=== PATIENT | female | born 1955 | race Caucasian/White ===

== ENCOUNTER 2018-03-13 09:35 | Day surgery (SDC) | payer BC ==
[2018-02-25 14:14] VITALS: BMI 25.7
[2018-03-13] MEDS ORDERED: PROPOFOL 20 ML ONE ×2 (10:36)
[2018-03-13 11:25] VITALS: TEMP 97.9
[2018-03-13 11:44] VITALS: BP 114/74; PULSE 77
--- NOTE | 2018-03-15 14:26 | PATH ---
Surgical Pathology Report Patient Name: DYLLAN MENDEZ [facility]. Rec. #: [id number] /Age/Gender: 1955 (Age: 62) / F Account: [id number] Location: [place] Pathology Taken: 03/13/2018 Received: 03/13/2018 Reported: 03/15/2018 Physicians: Felicia Conley M.D. Specimen(s) Received DESCENDING COLON Clinical History Rule out colon cancer Postoperative diagnosis: Polyp Final Diagnosis DESCENDING COLON, BIOPSY: HYPERPLASTIC POLYP. Electronically Signed Silvia Garcia M.D. Gross Description Received in formalin, labeled "descending colon" is a zamora, irregular portion of soft tissue measuring 0.3 cm. in greatest dimension. The specimen is submitted in toto in one cassette. 03/14/201803/14/2018
== END 2018-03-13 11:45 | disposition home or self-care (01) ==
LOC: FASU-ENDO 09:35
PROVIDERS: ATTEND Internal Medicine Gastroenterology
PROC: 0DBM8ZX Excision of Descending Colon, Via Natural or Artificial Opening Endoscopic, Diagnostic (ICD-10-PCS; principal; 2018-03-13 10:54)
DX: Z12.11 Encounter for screening for malignant neoplasm of colon (principal); K63.5 Polyp of colon; K64.1 Second degree hemorrhoids
CPT/HCPCS: 88305-TC

== ENCOUNTER 2023-02-28 04:30 | Day surgery (SDC) | payer OTHER, BC ==
[2023-02-26 11:01] VITALS: BMI 25.2
[2023-02-28] MEDS ORDERED: LIDOCAINE HCL/PF 2% SDV 5ML VIAL ONE (10:21)
[2023-02-28] MEDS ORDERED: PROPOFOL 20 ML ONE (10:21)
[2023-02-28] MEDS ORDERED: MIDAZOLAM HCL 2 MG/2 ML SINGLE DOSE VIAL ONE (10:21)
[2023-02-28] MEDS ORDERED: SEVOFLURANE 250 ML BTL ONE (10:24)
[2023-02-28] MEDS ORDERED: LIDOCAINE 1%-EPI 1:100,000 30 ML MDV IJ ONE (10:35)
[2023-02-28] MEDS ORDERED: BUPIVACAINE HCL/PF 0.5% (5MG/ML) 10 ML VIAL ONE (10:35)
[2023-02-28] MEDS ORDERED: ONDANSETRON 4 MG/2 ML VIAL ONE (10:55)
[2023-02-28] MEDS ORDERED: KETOROLAC TROMETHAMINE 30 MG/1 ML VIAL ONE (10:55)
[2023-02-28] MEDS ORDERED: DEXAMETHASONE SOD PHOSPHATE 4 MG/1 ML VIAL ONE (10:55)
[2023-02-28] MEDS ORDERED: ceFAZolin SODIUM 1 GM VIAL ONE (10:55)
[2023-02-28] MEDS ORDERED: PROMETHAZINE HCL 25 MG/1 ML VIAL IVPB PRN (11:29)
[2023-02-28] MEDS ORDERED: ONDANSETRON 4 MG/2 ML VIAL IVPUSH PRN (11:29)
[2023-02-28] MEDS ORDERED: oxyCODONE HCL 5 MG TABLET PO PRN ×2 (11:29)
[2023-02-28 13:35] VITALS: BP 126/80; PULSE 68; RESP 19; TEMP 97.2
== END 2023-02-28 13:35 | disposition home or self-care (01) ==
LOC: JASU-SURG 04:30 → FASU 04:30
PROVIDERS: ATTEND Orthopaedic Surgery
PROC: 0SBC4ZZ Excision of Right Knee Joint, Percutaneous Endoscopic Approach (ICD-10-PCS; principal; 2023-02-28 11:06)
DX: S83.271A Complex tear of lateral meniscus, current injury, right knee, initial encounter (principal); X58.XXXA Exposure to other specified factors, initial encounter; Y93.9 Activity, unspecified; Y92.9 Unspecified place or not applicable
CPT/HCPCS: 29881; G0289; 94760